=== PATIENT | male | born 1955 | race Caucasian/White ===

== ENCOUNTER 2018-05-26 01:17 | Emergency (ER) | payer MEDICARE, MEDICAID ==
--- NOTE | 2018-05-26 01:31 | EDM.PDOC ---
ED HPI GENERAL MEDICAL PROBLEM - General Chief Complaint: Chest Pain Stated Complaint: CHEST PAINS Time Seen by Provider: 05/26/18 01:17 Source of Information: Reports: Patient History Limitations: Reports: No Limitations - History of Present Illness INITIAL COMMENTS - FREE TEXT/NARRATIVE: 63-year-old male presents with intermittent chest pain for the past 3 weeks. It is not related to any activity although it does seem to be somewhat worse when he is lying down. No shortness of breath. The pain is substernal and lasts between 30 minutes to an hour and a half. At times it's very sharp but nonradiating. He was in to see his regular doctor 2 days ago regarding sciatic pain and did not mention it. Tonight he was having discomfort again so his girlfriend made him come in to be checked. Now that he see her it's going away, he does have a history of anxiety. He also has a history of reflux but is taking omeprazole daily. Onset: Sudden (When pain occurs seems to arise fairly suddenly) Associated Symptoms: Reports: Chest Pain. Denies: Confusion, Cough, Shortness of Breath Chest Pain Pain Score (Numeric/FACES): 6 - Related Data Allergies Allergy/AdvReac Type Severity Reaction Status Date / Time No Known Allergies Allergy Verified 05/26/18 01:28 Home Meds: Home Meds Gabapentin 600 mg PO BID 07/07/15 [History] Aspirin [Halfprin] 81 mg PO DAILY 05/26/18 [History] Citalopram [Citalopram HBr] 20 mg PO DAILY 05/26/18 [History] Cyclobenzaprine [Flexeril] 10 mg PO TID 05/26/18 [History] FLUoxetine HCl [Fluoxetine HCl] 20 mg PO DAILY 05/26/18 [History] Meloxicam 15 mg PO DAILY 05/26/18 [History] Omeprazole 20 mg PO DAILY 05/26/18 [History] QUEtiapine Fumarate [Quetiapine Fumarate] 100 mg PO BEDTIME 05/26/18 [History] Sennosides/Docusate Sodium [Senna-Docusate Sodium Tablet] 1 each PO DAILY [History] methylPREDNISolone [Methylprednisolone] 1 dose PO ASDIRECTED 05/26/18 [History] tiZANidine [Zanaflex] 4 mg PO BID 05/26/18 [History] traMADol HCl [Tramadol HCl] 50 mg PO Q6HR PRN 05/26/18 [History] Past Medical History HEENT History: Reports: Hard of Hearing Other Genitourinary History: hydrocele Musculoskeletal History: Reports: Amputation, Arthritis, Back Pain, Chronic, Fracture, Neck Pain, Chronic Hematologic History: Reports: Blood Transfusion(s) - Past Surgical History GI Surgical History: Reports: Hernia, Inguinal Other Male Surgeries/Procedures: Right orchiectomy Neurological Surgical History: Reports: C-Spine, Lumbar Spine, Spinal Fusion ED ROS GENERAL - Review of Systems Review Of Systems: See Below Constitutional: Denies: Fever, Chills HEENT: Reports: No Symptoms Respiratory: Denies: Shortness of Breath, Cough Cardiovascular: Reports: Chest Pain. Denies: Palpitations GI/Abdominal: Denies: Abdominal Pain, Nausea, Vomiting : Reports: No Symptoms Skin: Reports: No Symptoms Neurological: Denies: Headache ED EXAM, GENERAL - Physical Exam Exam: See Below Exam Limited By: No Limitations General Appearance: Alert, No Apparent Distress Eye Exam: Bilateral Eye: Normal Inspection Respiratory/Chest: No Respiratory Distress, Lungs Clear Cardiovascular: Regular Rate, Rhythm. 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) Neurological: Alert, Oriented Psychiatric: Anxious Skin Exam: Warm, Dry EKG INTERPRETATION Rhythm: NSR Course - Vital Signs Last Recorded V/S: Last Vital Signs Temp 95.5 F 05/26/18 01:19 Pulse 67 05/26/18 02:00 Resp 15 05/26/18 02:00 BP 137/79 05/26/18 02:00 Pulse Ox 94 L 05/26/18 02:00 - Orders/Labs/Meds Orders: Active Orders 24 hr Category Date Time Status EKG Documentation Completion [RC] ASDIRECTED Care 05/26/18 01:26 Active Chest 2V [CR] Routine Exams 05/26/18 01:25 Taken EKG 12 Lead [EK] Routine Ther 05/26/18 01:25 Ordered Labs: Laboratory Tests 05/26/18 05/26/18 Range/Units 01:30 01:30 WBC 6.4 (4.5-11.0) K/uL RBC 4.09 L (4.30-5.90) M/uL Hgb 12.6 (12.0-15.0) g/dL Hct 37.4 L (40.0-54.0) % MCV 91 (80-98) fL MCH 31 (27-31) pg MCHC 34 (32-36) % Plt Count 218 (150-400) K/uL Neut % (Auto) 86 H (36-66) % Lymph % (Auto) 10 L (24-44) % [place] % (Auto) 5 (2-6) % Eos % (Auto) 0 L (2-4) % Baso % (Auto) 0 (0-1) % Sodium 142 (140-148) mmol/L Potassium 4.2 (3.6-5.2) mmol/L Chloride 106 (100-108) mmol/L Carbon Dioxide 26 (21-32) mmol/L Anion Gap 10.1 (5.0-14.0) mmol/L BUN 16 (7-18) mg/dL Creatinine 0.7 L (0.8-1.3) mg/dL Est Cr Clr Drug Dosing 88.36 mL/min Estimated GFR (MDRD) > 60 (>60) Glucose 137 H (74-106) mg/dL Calcium 8.7 (8.5-10.1) mg/dL Troponin I < 0.017 (0.000-0.056) ng/mL - Re-Assessments/Exams Free Text/Narrative Re-Assessment/Exam: 05/26/18 01:32 EKG was completely normal. A two-view chest x-ray, CBC, CMP and troponin were obtained. Patient's pain had resolved before treatment could be given. 05/26/18 02:10 Two-view chest x-ray was normal, CBC CMP and troponin were all reassuring, troponin was 0. No reason for hospitalization, recheck with primary provider in the next 1-2 weeks to discuss stress tests and it would also be helpful to have some liquid antacid available if pain recurs. Departure - Departure Time of Disposition: 02:39 Disposition: Home, Self-Care 01 Condition: Good Clinical Impression: Atypical chest pain Acid reflux Qualifiers: Esophagitis presence: esophagitis presence not specified Qualified Code(s): K21.9 - Gastro-esophageal reflux disease without esophagitis - Discharge Information Instructions: Nonspecific Chest Pain, [id number] Referrals: PCP,None [Primary Care Provider] - Forms: ED Department Discharge Care Plan Goals: Continue your current medications, and have some liquid antacid available to drive pain recurs. If pain persists discuss a stress test with your primary provider or return to the emergency room. - My Orders Last 24 Hours: My Active Orders 05/26/18 01:25 Chest 2V [CR] Routine EKG 12 Lead [EK] Routine 05/26/18 01:26 EKG Documentation Completion [RC] ASDIRECTED - Assessment/Plan Last 24 Hours: My Active Orders 05/26/18 01:25 Chest 2V [CR] Routine EKG 12 Lead [EK] Routine 05/26/18 01:26 EKG Documentation Completion [RC] ASDIRECTED
[2018-05-26 02:02] VITALS: BP 137/79
--- NOTE | 2018-05-28 09:06 | CR ---
CHEST: 2 view CLINICAL HISTORY:Dyspnea COMPARISON:None FINDINGS: The heart size, pulmonary vascular and hilar structures are normal. No infiltrate effusion or pneumothorax is seen. IMPRESSION: No acute cardiopulmonary process.
== END 2018-05-26 02:25 | disposition home or self-care (01) ==
LOC: JP.ED 01:17
DX: K21.9 Gastro-esophageal reflux disease without esophagitis (principal); Z79.899 Other long term (current) drug therapy
CPT/HCPCS: 36415; 71046; 71046-26; 80048; 84484; 85025; 99285-25

== ENCOUNTER 2020-06-07 06:52 | Emergency (ER) | payer MEDICARE, MEDICAID ==
[2020-06-07 07:08] VITALS: BP 145/91; PULSE 65
[2020-06-07] MEDS ORDERED: Diazepam 5 MG Tab PO ONE (07:49)
--- NOTE | 2020-06-07 07:55 | EDM.PDOC ---
ED HPI GENERAL MEDICAL PROBLEM - General Chief Complaint: Upper Extremity Injury/Pain Stated Complaint: RIGHT SHOULDER PAIN Time Seen by Provider: 06/07/20 07:30 Source of Information: Reports: Patient, Family, RN History Limitations: Reports: No Limitations - History of Present Illness INITIAL COMMENTS - FREE TEXT/NARRATIVE: 65-year-old male with a history of over 40 skeletal surgeries including a prosthesis in his left shoulder and his left lower leg comes now because of severe muscle spasm pain in the rhomboids and trapezius area on the right shoulder that kept him awake last night. He has been seen frequently by his private doctor and apparently few days ago got injections in the area that got a little bit numb for a while but has not relieved the muscle spasm. Problem is not in the shoulder tip itself and he has had apparently MRIs. The pain is more just lateral to the spine where he has had prior surgeries as well. Some days he is fine and has no pain other days he has the pain like a charley horse effect in the leg. The Robaxin and [place] have had no effect. He has taken Valium in the past when he had muscle spasm problems with his leg and found it to be effective Right Shoulder Pain Score (Numeric/FACES): 10 - Related Data Allergies Allergy/AdvReac Type Severity Reaction Status Date / Time No Known Allergies Allergy Verified 06/07/20 07:07 Home Meds: Home Meds Gabapentin 600 mg PO BID 07/07/15 [History] Aspirin [Halfprin] 81 mg PO DAILY 05/26/18 [History] FLUoxetine HCl [Fluoxetine HCl] 20 mg PO DAILY 05/26/18 [History] Meloxicam 15 mg PO DAILY 05/26/18 [History] Omeprazole 20 mg PO DAILY 05/26/18 [History] Hydrocodone/Acetaminophen [Hydrocodon-Acetaminophen 5-325] 1 tab PO ASDIRECTED 06/07/20 [History] Mv-Mn/Iron/Folic Acid/Herb 190 [Vitamin D3 Complete Caplet] 1 tab PO DAILY 06/07/20 [History] methocarbamoL [Methocarbamol] 500 mg PO ASDIRECTED 06/07/20 [History] Past Medical History HEENT History: Reports: Hard of Hearing, Impaired Vision Gastrointestinal History: Reports: None Genitourinary History: Reports: Other (See Below) Other Genitourinary History: hydrocele Musculoskeletal History: Reports: Amputation, Arthritis, Back Pain, Chronic, Fracture, Neck Pain, Chronic Other Musculoskeletal History: Disc degenerative disease neck Psychiatric History: Reports: Addiction, Depression Hematologic History: Reports: Blood Transfusion(s) - Infectious Disease History Infectious Disease History: Reports: Chicken Pox - Past Surgical History Head Surgeries/Procedures: Reports: None HEENT Surgical History: Reports: Adenoidectomy, Tonsillectomy, Other (See Below) Other HEENT Surgeries/Procedures: cleft palate GI Surgical History: Reports: Hernia, Inguinal Male Surgical History: Reports: Other (See Below) Other Male Surgeries/Procedures: Right orchiectomy Neurological Surgical History: Reports: C-Spine, Lumbar Spine, Spinal Fusion Musculoskeletal Surgical History: Reports: Amputation, Other (See Below) Other Musculoskeletal Surgeries/Procedures:: left BKA Dermatological Surgical History: Reports: None Social & Family History - Tobacco Use Tobacco Use Status *Q: Current Every Day Tobacco User Years of Tobacco use: 30 Packs/Tins Daily: 0.5 Used Tobacco, but Quit: No Second Hand Smoke Exposure: No - Caffeine Use Caffeine Use: Reports: Coffee - Alcohol Use Days Per Week of Alcohol Use: 5 Number of Drinks Per Day: 2 Total Drinks Per Week: 10 - Recreational Drug Use Recreational Drug Use: No Review of Systems - Review of Systems Review Of Systems: See Below Constitutional: Reports: No Symptoms, Other (10 or more systems reviewed and he appears to be negative and most other than the musculoskeletal as the major problem) ED EXAM, GENERAL - Physical Exam Exam: See Below Free Text/Narrative:: 65-year-old male sitting in the chair accompanied by his . In general he is a relatively thin male who appears moderate distress because of the pain in his shoulder. HEENT shows eyes ears nose and throat appear to be okay Neck has limited range of motion and he has a scar on his upper thoracic cervical spine area from prior surgery Chest clear regular rate and rhythm Extremities he has a prosthesis left lower leg. Range of motion function of the shoulder appears to be okay Musculoskeletal he has tenderness in the rhomboids on the right side of the upper spine and back and into the trapezius which suggest some muscle spasm that he does not have on the left side. Neurologic without focal deficit. Exam Limited By: No Limitations General Appearance: Alert, Anxious, Moderate Distress Course - Vital Signs Text/Narrative:: I discussed with him in detail the options including a stronger type of pain medicine such as Dilaudid or to go to a better muscle relaxer such as 10 mg of Valium supplemented with his 400 of Motrin and 500 of Tylenol. He opts to go for that as I cannot really be both the Valium and Dilaudid. He will then follow-up with his physician Last Recorded V/S: Last Vital Signs Temp 36.3 C 06/07/20 07:13 Pulse 65 06/07/20 07:13 Resp 17 06/07/20 07:13 BP 145/91 H 06/07/20 07:13 Pulse Ox 96 06/07/20 07:13 - Orders/Labs/Meds Meds: Medications Discontinued Medications Generic Name Dose Route Start Last Admin Trade Name Khadar PRN Reason Stop Dose Admin Diazepam 10 mg 06/07/20 07:49 Valium. PO 06/07/20 07:50 ONETIME ONE Departure - Departure Time of Disposition: 08:00 Disposition: Home, Self-Care 01 Condition: Good Clinical Impression: Muscle spasm, Shoulder pain - Discharge Information Instructions: Muscle Cramps and Spasms, [id number] Referrals: Nohemy Ramirez MD [Primary Care Provider] - Forms: ED Department Discharge Additional Instructions: 400 of Motrin and 500 of Tylenol every 4-6 hours for pain. Valium 10 mg 1/2 to 1 tablet every 6-8 hours for muscle spasm. Follow-up with your physician Sepsis Event Note (ED) - Evaluation Sepsis Screening Result: No Definite Risk - Focused Exam Vital Signs: Vital Signs Temp Pulse Resp BP Pulse Ox 06/07/20 07:13 36.3 C 65 17 145/91 H 96 06/07/20 07:07 36.3 C 65 17 145/91 H 96
== END 2020-06-07 08:05 | disposition home or self-care (01) ==
LOC: JP.ED 06:52
DX: M25.511 Pain in right shoulder (principal); M62.838 Other muscle spasm; M19.90 Unspecified osteoarthritis, unspecified site; Z72.0 Tobacco use; Z98.890 Other specified postprocedural states; Z79.82 Long term (current) use of aspirin; Z79.899 Other long term (current) drug therapy
CPT/HCPCS: 99283; A9270

== ENCOUNTER 2020-06-08 17:49 | Emergency (ER) | payer MEDICARE, MEDICAID ==
[2020-06-08] MEDS ORDERED: Baclofen 10 MG Tab PO ONE (18:52)
[2020-06-08] MEDS ORDERED: HYDROmorphone 1 MG/ML Syringe IM ONE (18:52)
--- NOTE | 2020-06-08 18:54 | EDM.PDOC ---
ED HPI GENERAL MEDICAL PROBLEM - General Chief Complaint: Upper Extremity Injury/Pain Stated Complaint: PAIN R SHOULDER Time Seen by Provider: 06/08/20 18:16 Source of Information: Reports: Patient, Family, Old Records, RN Notes Reviewed History Limitations: Reports: No Limitations - History of Present Illness INITIAL COMMENTS - FREE TEXT/NARRATIVE: 65-year-old gentleman presents emergency department with a complaint of right shoulder pain, he states he has had chronic shoulder pain for some time however it has gotten significantly worse over the last week he has visited with his primary care he has visited with orthopedic surgeon who does not want to do surgery on him did try an injection on Monday to see if it would buy him some time. He stated initially it felt good but now it is progressively gotten worse. He is using hydrocodone has used both Flexeril and Valium for muscle relaxant without any relief. Right Middle Shoulder Pain Score (Numeric/FACES): 10 - Related Data Allergies Allergy/AdvReac Type Severity Reaction Status Date / Time No Known Allergies Allergy Verified 06/07/20 07:07 Home Meds: Home Meds Gabapentin 600 mg PO BID 07/07/15 [History] Aspirin [Halfprin] 81 mg PO DAILY 05/26/18 [History] FLUoxetine HCl [Fluoxetine HCl] 20 mg PO DAILY 05/26/18 [History] Meloxicam 15 mg PO DAILY 05/26/18 [History] Omeprazole 20 mg PO DAILY 05/26/18 [History] Hydrocodone/Acetaminophen [Hydrocodon-Acetaminophen 5-325] 1 tab PO ASDIRECTED 06/07/20 [History] Mv-Mn/Iron/Folic Acid/Herb 190 [Vitamin D3 Complete Caplet] 1 tab PO DAILY 06/07/20 [History] methocarbamoL [Methocarbamol] 500 mg PO ASDIRECTED 06/07/20 [History] Acetaminophen [Tylenol] 1,000 mg PO QID 06/08/20 [History] Ibuprofen 400 mg PO QID 06/08/20 [History] diazePAM [Valium] 10 mg PO QID 06/08/20 [History] Past Medical History HEENT History: Reports: Hard of Hearing, Impaired Vision Genitourinary History: Reports: Other (See Below) Other Genitourinary History: hydrocele Musculoskeletal History: Reports: Amputation, Arthritis, Back Pain, Chronic, Fracture, Neck Pain, Chronic Other Musculoskeletal History: Disc degenerative disease neck Psychiatric History: Reports: Addiction, Depression Hematologic History: Reports: Blood Transfusion(s) - Infectious Disease History Infectious Disease History: Reports: Chicken Pox - Past Surgical History Head Surgeries/Procedures: Reports: None HEENT Surgical History: Reports: Adenoidectomy, Tonsillectomy, Other (See Below) Other HEENT Surgeries/Procedures: cleft palate GI Surgical History: Reports: Hernia, Inguinal Male Surgical History: Reports: Other (See Below) Other Male Surgeries/Procedures: Right orchiectomy Neurological Surgical History: Reports: C-Spine, Lumbar Spine, Spinal Fusion Musculoskeletal Surgical History: Reports: Amputation, Other (See Below) Other Musculoskeletal Surgeries/Procedures:: left BKA Dermatological Surgical History: Reports: None Social & Family History - Tobacco Use Tobacco Use Status *Q: Current Every Day Tobacco User Years of Tobacco use: 30 Packs/Tins Daily: 0.5 - Caffeine Use Caffeine Use: Reports: Coffee - Recreational Drug Use Recreational Drug Use: No Review of Systems - Review of Systems Review Of Systems: See Below Constitutional: Reports: No Symptoms Mouth/Throat: Reports: No Symptoms Respiratory: Reports: No Symptoms Cardiovascular: Reports: No Symptoms GI/Abdominal: Reports: No Symptoms Musculoskeletal: Reports: Shoulder Pain Neurological: Reports: No Symptoms ED EXAM, GENERAL - Physical Exam Exam: See Below Free Text/Narrative:: Examination of the right shoulder he has full range of motion of shoulder I cannot appreciate any point tenderness in the shoulder he is tender along the rhomboids and scapular region on the right side radial pulses +2 Exam Limited By: No Limitations General Appearance: Alert, WD/WN, No Apparent Distress Respiratory/Chest: No Respiratory Distress Course - Vital Signs Last Recorded V/S: Last Vital Signs Temp 98.0 F 06/08/20 18:15 Pulse 77 06/08/20 19:18 Resp 17 06/08/20 19:18 BP 151/99 H 06/08/20 19:18 Pulse Ox 95 06/08/20 19:18 - Orders/Labs/Meds Meds: Medications Discontinued Medications Generic Name Dose Route Start Last Admin Trade Name Freq PRN Reason Stop Dose Admin Baclofen 10 mg 06/08/20 18:52 06/08/20 18:56 Lioresal PO 06/08/20 18:53 10 mg ONETIME ONE Administration Hydromorphone HCl 1 mg 06/08/20 18:52 06/08/20 18:56 Dilaudid IM 06/08/20 18:53 1 mg ONETIME ONE Administration Departure - Departure Time of Disposition: 19:41 Disposition: Home, Self-Care 01 Condition: Fair Clinical Impression: Muscle spasm Shoulder pain Qualifiers: Chronicity: chronic Laterality: right Qualified Code(s): M25.511 - Pain in right shoulder; G89.29 - Other chronic pain - Discharge Information Instructions: Shoulder Pain Referrals: Nohemy Ramirez MD [Primary Care Provider] - Forms: ED Department Discharge Additional Instructions: Please contact your primary care in the morning as well as orthopedics for further evaluation and treatment call return to the emergency department worsening of symptoms Sepsis Event Note (ED) - Evaluation Sepsis Screening Result: No Definite Risk - Focused Exam Vital Signs: Vital Signs Temp Pulse Resp BP Pulse Ox 06/08/20 19:18 77 17 151/99 H 95 06/08/20 18:15 98.0 F 83 16 163/104 H 97 06/08/20 18:11 98.0 F 83 16 163/104 H 97 - Assessment/Plan Plan: Assessment Acuity = chronic Site and laterality = right shoulder pain Etiology = unknown Manifestations = none Location of injury = Home Lab values = none Plan Good relief combination hydromorphone and baclofen, prescription written for hydromorphone 2 mg 1 tab p.o. 3 times daily as needed total #10 as well as baclofen 10 mg 1 tab p.o. 3 times daily as needed total #10 he will contact both orthopedics and his primary care tomorrow for further follow-up This note was dictated using [employer] voice recognition software please call with any questions on syntax or grammar.
[2020-06-08 19:19] VITALS: BP 151/99; PULSE 77
== END 2020-06-08 20:03 | disposition home or self-care (01) ==
LOC: JP.ED 17:49
DX: M25.511 Pain in right shoulder (principal); G89.29 Other chronic pain; M62.838 Other muscle spasm; M19.90 Unspecified osteoarthritis, unspecified site; Z72.0 Tobacco use; Z79.82 Long term (current) use of aspirin; Z79.899 Other long term (current) drug therapy
CPT/HCPCS: 96372; 99283; A9270; J1170

== ENCOUNTER 2020-09-26 21:08 | Emergency (ER) | payer MEDICARE, MEDICAID ==
[2020-09-26] MEDS ORDERED: HYDROmorphone 1 MG/ML Syringe IM ONE (21:36)
--- NOTE | 2020-09-26 22:07 | EDM.PDOC ---
ED HPI GENERAL MEDICAL PROBLEM - General Chief Complaint: Wound Recheck Stated Complaint: NECK PAIN Time Seen by Provider: 09/26/20 21:35 Source of Information: Reports: Patient, Family History Limitations: Reports: No Limitations - History of Present Illness INITIAL COMMENTS - FREE TEXT/NARRATIVE: 65-year-old male who had cervical spine surgery 19 days ago, it sounds like he h ad a fusion of C2-C7. He had been doing well, was off his pain medication but 28 hours ago he was pulling on his prosthetic leg when he felt a pop sensation in his right neck. He later reached out and pulled something with his right arm and again felt the same type of sensation. He has had a marked increase in pain in his neck since that time, a few paresthesias or sharp pains in his left arm n ear the antecubital area but no other neurologic deficits or symptoms peripherally. He is just getting concerned that he may have done something to the hardware. He arrives wearing his neck immobilizer, appears stable. He took one of his oxycodones at 7 PM, it is now 9:30. Onset: Sudden Duration: Hour(s): (First episode was 28 hours ago) Location: Reports: Neck (Right side) Associated Symptoms: Reports: Other (Some burning paresthesia sensations in the left arm) Right Neck Pain Score (Numeric/FACES): 8 - Related Data Allergies Allergy/AdvReac Type Severity Reaction Status Date / Time No Known Allergies Allergy Verified 09/26/20 21:18 Home Meds: Home Meds Gabapentin 600 mg PO BID 07/07/15 [History] Aspirin [Halfprin] 81 mg PO DAILY 05/26/18 [History] FLUoxetine HCl [Fluoxetine HCl] 20 mg PO DAILY 05/26/18 [History] Meloxicam 15 mg PO DAILY 05/26/18 [History] Omeprazole 20 mg PO DAILY 05/26/18 [History] methocarbamoL [Methocarbamol] 750 mg PO ASDIRECTED 06/07/20 [History] Acetaminophen [Tylenol] 1,000 mg PO QID 06/08/20 [History] LORazepam [Ativan] 1 mg PO ASDIRECTED 09/26/20 [History] Sennosides [Martha-Francisco] 8.6 mg PO DAILY 09/26/20 [History] oxyCODONE 5 mg PO ASDIRECTED PRN 09/26/20 [History] Past Medical History HEENT History: Reports: Hard of Hearing, Impaired Vision Gastrointestinal History: Reports: None Genitourinary History: Reports: Other (See Below) Other Genitourinary History: hydrocele Musculoskeletal History: Reports: Amputation, Arthritis, Back Pain, Chronic, Fracture, Neck Pain, Chronic Other Musculoskeletal History: Disc degenerative disease neck Psychiatric History: Reports: Addiction, Depression Hematologic History: Reports: Blood Transfusion(s) - Infectious Disease History Infectious Disease History: Reports: Chicken Pox - Past Surgical History Head Surgeries/Procedures: Reports: None HEENT Surgical History: Reports: Adenoidectomy, Tonsillectomy, Other (See Below) Other HEENT Surgeries/Procedures: cleft palate GI Surgical History: Reports: Hernia, Inguinal Male Surgical History: Reports: Other (See Below) Other Male Surgeries/Procedures: Right orchiectomy Neurological Surgical History: Reports: C-Spine, Lumbar Spine, Spinal Fusion Musculoskeletal Surgical History: Reports: Amputation, Other (See Below) Other Musculoskeletal Surgeries/Procedures:: left BKA. neck cervical spine surgery Dermatological Surgical History: Reports: None Social & Family History - Tobacco Use Tobacco Use Status *Q: Former Tobacco User Used Tobacco, but Quit: Yes Month/Year Tobacco Last Used: 07/2020 - Caffeine Use Caffeine Use: Reports: Coffee Caffeine Use Comment: 1/2 a pot per day - Recreational Drug Use Recreational Drug Use: No ED ROS GENERAL - Review of Systems Review Of Systems: See Below Constitutional: Denies: Fever, Chills HEENT: Denies: Throat Pain, Vision Change Respiratory: Denies: Shortness of Breath GI/Abdominal: Denies: Nausea, Vomiting : Reports: No Symptoms Musculoskeletal: Reports: Neck Pain, Back Pain Skin: Reports: Other (No change in the incisions, dry and clean) Neurological: Denies: Headache ED EXAM, UPPER BACK/NECK PAIN - Physical Exam Exam: See Below Text/Narrative:: Patient initially had a cervical spine immobilizer on which was removed. Incisions look excellent. On palpation he has some soreness just to the right of the cervical bodies at roughly C6-C7. He appears to be comfortable with gentle range of motion of the neck. Exam Limited By: No Limitations General Appearance: Alert, No Apparent Distress Eye Exam: Bilateral Eye: Normal Inspection Head Exam: Atraumatic Neck Exam: Painful Range of Motion (Patient can rotate the neck, flexion and extension without significant pain), Paraspinous Muscle Tender (Some palpation tenderness just to the right of the C5-C7 area of the neck) Extremities: Other (Prosthetic leg on the left side) Neurologic: No Motor/Sensory Deficits, Normal Mood/Affect, Oriented x 3 Psychiatric: Normal Affect, Normal Mood Skin Exam: Other (Incisions are dry, slight erythema but no warmth, healing looks appropriate) Course - Vital Signs Last Recorded V/S: Last Vital Signs Temp 97.5 F 09/26/20 21:25 Pulse 70 09/26/20 23:01 Resp 16 09/26/20 23:01 BP 130/86 09/26/20 23:01 Pulse Ox 96 09/26/20 21:25 - Orders/Labs/Meds Meds: Medications Discontinued Medications Generic Name Dose Route Start Last Admin Trade Name Edilbertoq PRN Reason Stop Dose Admin Hydromorphone HCl 1 mg 09/26/20 21:36 09/26/20 21:41 Hydromorphone 1 Mg/Ml Syringe IM 09/26/20 21:37 1 mg ONETIME ONE Administration - Re-Assessments/Exams Free Text/Narrative Re-Assessment/Exam: 09/26/20 22:07 Patient was given 1 mg of IM Dilaudid, and a cervical spine x-ray was obtained. 09/26/20 22:48 C-spine x-ray looks good, read report to still pending. Patient felt much better after the reassurance of the x-ray and the IM Dilaudid. Monday he is going to return to get the images sent down to the spine center and discussed with them how he is feeling. He can return anytime if worsening. 09/27/20 02:00 FINDINGS/IMPRESSION: AP and lateral views of the cervical spine. Status post anterior cervical fusion from C3 to C7, as before, with unchanged bone grafts within the C3-4, C4-5, C5-6, and C6-7 disc spaces and a metallic plate affixed by screws to the C5, C6, and C7 vertebral bodies. Interval revision of previously seen bilateral posterior stabilization rods, now extending from C3 inferiorly to the upper thoracic spine. Surgical hardware appears intact. No fractures are identified. Osseous alignment is within normal limits. Prevertebral soft tissues are unremarkable. Departure - Departure Time of Disposition: 23:00 Disposition: Home, Self-Care Clinical Impression: Acute neck pain - Discharge Information Instructions: Pain Medicine Instructions, [id number] Referrals: Nohemy Ramirez MD [Primary Care Provider] - Forms: ED Department Discharge Care Plan Goals: Take full doses of oxycodone, Tylenol and ibuprofen over the next few days to decrease your pain and return anytime if peripheral nerve deficits occur such as weakness in an arm or leg, or pain is uncontrollable. We will contact you if anything is concerning about the neck x-ray. Sepsis Event Note (ED) - Evaluation Sepsis Screening Result: No Definite Risk - Focused Exam Vital Signs: Vital Signs Temp Pulse Resp BP Pulse Ox 09/26/20 23:01 70 16 130/86 09/26/20 21:25 97.5 F 89 16 140/92 H 96
[2020-09-26 23:01] VITALS: BP 130/86; PULSE 70
--- NOTE | 2020-09-26 23:38 | CRLCR ---
INDICATION: Three weeks postop. Re-injury. Check hardware. COMPARISON: 06/09/2020. FINDINGS/IMPRESSION: AP and lateral views of the cervical spine. Status post anterior cervical fusion from C3 to C7, as before, with unchanged bone grafts within the C3-4, C4-5, C5-6, and C6-7 disc spaces and a metallic plate affixed by screws to the C5, C6, and C7 vertebral bodies. Interval revision of previously seen bilateral posterior stabilization rods, now extending from C3 inferiorly to the upper thoracic spine. Surgical hardware appears intact. No fractures are identified. Osseous alignment is within normal limits. Prevertebral soft tissues are unremarkable. Dictated by Alexx Brito MD @ 09/26/2020 11:37:40 PM Dictated by: Alexx Brito MD @ 09/26/2020 23:37:53 (Electronically Signed)
== END 2020-09-26 23:00 | disposition home or self-care (01) ==
LOC: JP.ED 21:08
DX: M54.2 Cervicalgia (principal); M19.90 Unspecified osteoarthritis, unspecified site; Z79.82 Long term (current) use of aspirin; Z79.899 Other long term (current) drug therapy; Z87.891 Personal history of nicotine dependence
CPT/HCPCS: 72040; 96372; 99283; J1170

== ENCOUNTER 2020-09-30 21:00 | Emergency (ER) | payer MEDICARE, MEDICAID ==
[2020-09-30] MEDS ORDERED: HYDROmorphone 1 MG/ML Syringe IM ONE (21:22)
--- NOTE | 2020-09-30 21:38 | EDM.PDOC ---
ED HPI GENERAL MEDICAL PROBLEM - General Chief Complaint: Wound Recheck Stated Complaint: OPEN WOUND Time Seen by Provider: 09/30/20 21:19 Source of Information: Reports: Patient History Limitations: Reports: No Limitations - History of Present Illness INITIAL COMMENTS - FREE TEXT/NARRATIVE: Jerome is a 65-year-old male presenting to the ED for evaluation of open wound over his thoracic spine. Patient recently underwent a cervical spine fusion from C3-C7 which was performed by Dr. Cox with [facility] at [facility] 3 weeks ago. The patient was seen here on 09/25/2020 for increased neck pain and feeling a pop when he was trying to take off his prosthetic leg. His x-rays of the cervical spine and work-up were unremarkable at the time, however, today he was laying in bed when it all of a sudden felt wet and he sat up. His said that there was red fluid on the bed and when she looked under the dressing she saw the area was wide open. She became concerned and brought him in for evaluation. She has not contacted [facility]. The patient does not have any fever or chills. He has no paresthesias, numbness, or weakness. His fusion was for cervical stenosis. He does have a history of severe degenerative disc disease. Neck Pain Score (Numeric/FACES): 8 - Related Data Allergies Allergy/AdvReac Type Severity Reaction Status Date / Time No Known Allergies Allergy Verified 09/26/20 21:18 Home Meds: Home Meds Gabapentin 600 mg PO BID 07/07/15 [History] Aspirin [Halfprin] 81 mg PO DAILY 05/26/18 [History] FLUoxetine HCl [Fluoxetine HCl] 20 mg PO DAILY 05/26/18 [History] Meloxicam 15 mg PO DAILY 05/26/18 [History] Omeprazole 20 mg PO DAILY 05/26/18 [History] methocarbamoL [Methocarbamol] 750 mg PO ASDIRECTED 06/07/20 [History] Acetaminophen [Tylenol] 1,000 mg PO QID 06/08/20 [History] LORazepam [Ativan] 1 mg PO ASDIRECTED 09/26/20 [History] Sennosides [Martha-Francisco] 8.6 mg PO DAILY 09/26/20 [History] oxyCODONE 5 mg PO ASDIRECTED PRN 09/26/20 [History] Past Medical History HEENT History: Reports: Hard of Hearing, Impaired Vision Gastrointestinal History: Reports: None Genitourinary History: Reports: Other (See Below) Other Genitourinary History: hydrocele Musculoskeletal History: Reports: Amputation, Arthritis, Back Pain, Chronic, Fracture, Neck Pain, Chronic Other Musculoskeletal History: Disc degenerative disease neck Psychiatric History: Reports: Addiction, Depression Hematologic History: Reports: Blood Transfusion(s) - Infectious Disease History Infectious Disease History: Reports: Chicken Pox - Past Surgical History Head Surgeries/Procedures: Reports: None HEENT Surgical History: Reports: Adenoidectomy, Tonsillectomy, Other (See Below) Other HEENT Surgeries/Procedures: cleft palate GI Surgical History: Reports: Hernia, Inguinal Male Surgical History: Reports: Other (See Below) Other Male Surgeries/Procedures: Right orchiectomy Neurological Surgical History: Reports: C-Spine, Lumbar Spine, Spinal Fusion Musculoskeletal Surgical History: Reports: Amputation, Other (See Below) Other Musculoskeletal Surgeries/Procedures:: left BKA. neck cervical spine surgery Dermatological Surgical History: Reports: None Social & Family History - Caffeine Use Caffeine Use: Reports: Coffee Caffeine Use Comment: 1/2 a pot per day ED ROS GENERAL - Review of Systems Review Of Systems: See Below Constitutional: Reports: No Symptoms HEENT: Reports: No Symptoms Respiratory: Reports: No Symptoms Cardiovascular: Reports: No Symptoms Endocrine: Reports: No Symptoms GI/Abdominal: Reports: No Symptoms : Reports: No Symptoms Musculoskeletal: Reports: Neck Pain Skin: Reports: Wound (Wound dehiscence of the thoracic spine from recent cervical spine fusion.) Neurological: Reports: No Symptoms Psychiatric: Reports: No Symptoms Hematologic/Lymphatic: Reports: No Symptoms Immunologic: Reports: No Symptoms ED EXAM, GENERAL - Physical Exam Exam: See Below Exam Limited By: No Limitations General Appearance: Alert, Anxious, Mild Distress Neck: Supple, Non-Tender, Full Range of Motion, Other (Patient arrived in a cervical immobilizer which was removed for examination. He has full range of motion which is predominantly nontender. He does have a very bloody dressing over the upper thoracic spine.) Respiratory/Chest: No Respiratory Distress Cardiovascular: Normal Peripheral Pulses, Regular Rate, Rhythm Back Exam: Other (Dehiscence of the wound in the midline posterior from roughly T3-T6 during 6 cm x 3 cm with clot. I am able to view the posterior pedicles of the spine. It appears the muscles have been pulled away from the spine.) Extremities: Other (Left prosthetic leg (below-knee)) Neurological: Alert, Oriented, Normal Cognition, No Motor/Sensory Deficits Skin Exam: Wound/Incision (Wound dehiscence in the upper thorax posteriorly measuring 6 cm x 3 cm.) Course - Vital Signs Last Recorded V/S: Last Vital Signs Temp 36.7 C 09/30/20 22:40 Pulse 101 H 09/30/20 23:27 Resp 16 09/30/20 23:27 BP 123/96 H 09/30/20 23:27 Pulse Ox 93 L 09/30/20 23:27 - Orders/Labs/Meds Orders: Active Orders 24 hr Category Date Time Status Sodium Chloride 0.9% [Saline Flush] Med 09/30/20 22:08 Active 10 ml FLUSH ASDIRECTED PRN ceFAZolin [Ancef] 1 gm Med 09/30/20 23:28 Active Sodium Chloride 0.9% [Normal Saline] 50 ml IV ONETIME Saline Lock Insert [OM.PC] Routine Oth 09/30/20 22:08 Ordered Medication Orders Cefazolin Sodium 1 gm/ Sodium (Chloride) 50 mls @ 100 mls/hr IV ONETIME ONE Stop: 09/30/20 23:57 Sodium Chloride (Sodium Chloride 0.9% 10 Ml Syringe) 10 ml FLUSH ASDIRECTED PRN PRN Reason: Keep Vein Open Last Admin: 09/30/20 22:51 Dose: 10 ml Documented by: MIKE Meds: Medications Generic Name Dose Route Start Last Admin Trade Name Freq PRN Reason Stop Dose Admin Cefazolin Sodium 1 gm/ Sodium 50 mls @ 100 mls/hr 09/30/20 23:28 Chloride IV 09/30/20 23:57 ONETIME ONE Sodium Chloride 10 ml 09/30/20 22:08 09/30/20 22:51 Sodium Chloride 0.9% 10 Ml Syringe FLUSH 10 ml ASDIRECTED PRN Administration Keep Vein Open Discontinued Medications Generic Name Dose Route Start Last Admin Trade Name Freq PRN Reason Stop Dose Admin Cefazolin Sodium Confirm 09/30/20 23:25 Cefazolin 1 Gm Vial Administered 09/30/20 23:26 Dose 1 gm .ROUTE .STK-MED ONE Hydromorphone HCl 1 mg 09/30/20 21:22 09/30/20 21:29 Hydromorphone 1 Mg/Ml Syringe IM 09/30/20 21:23 1 mg ONETIME ONE Administration Piperacillin Sod/Tazobactam 100 mls @ 100 mls/hr 09/30/20 22:08 09/30/20 22:39 Sod 4.5 gm/ Sodium Chloride IV 09/30/20 23:07 100 mls/hr ONETIME ONE Administration Cefazolin Sodium/Dextrose 1 gm 50 mls @ 100 mls/hr 09/30/20 23:14 / Premix IV 09/30/20 23:43 ONETIME ONE Sodium Chloride Confirm 09/30/20 23:25 Normal Saline Administered 09/30/20 23:26 Dose 50 mls @ as directed .ROUTE .STK-MED ONE - Re-Assessments/Exams Free Text/Narrative Re-Assessment/Exam: 09/30/20 22:05 I discussed the case with Dr. Izquierdo, fellow in neurosurgery at [facility] who recommended that we put moist Curlex packing in the wound and over that place abdominal pad dressings. He recommended starting IV antibiotics which we had with Zosyn. He would like to talk with Dr. Bello and Dr. Cox regarding the time sensitive closure of this wound which is open to his spine. 1 call notified us that there were no beds available at [facility] at this time. Dr. Izquierdo suggested perhaps trying [place] which would be much closer to do the closure which would likely require either general surgeon doing a washout and closure or plastic surgery but felt that neurosurgery really did need to be involved as it was just a wound closure. 09/30/20 22:33 after waiting for nearly 1/2 an hour, a family heard back from [facility] concerning the transfer of the patient. They are trying to get a hold of their neurosurgeon, Dr. Garcia, but he is not answering his phone and may be in the operating room. They will call back once he is available to discuss whether he is comfortable with taking this transfer. 09/30/20 23:10 after waiting over a half an hour we elected to call [facility] and I discussed the case with Dr. Owusu from neurosurgery who felt strongly that the patient should go back to the primary surgeon that operated on him and would not accept him in transfer to [facility]. He was concerned that the patient may have a meningocele or leakage of CSF. 09/30/20 23:20 I received a phone call back from Rent[facility] Patience, Dr. Garcia who like Dr. Owusu also felt that the patient should go back to his primary surgeon and also refused to take the patient. 09/30/20 23:25 I discussed the case again with Dr. Izquierdo who accepts the patient in transfer. [address] Pradhan call me to arrange for direct admission to [facility] which now has a bed available for the patient. Will arrange for EMS to transfer the patient once I talk with Dr. Pradhan. This was discussed with the patient. Dr. Izquierdo would like me to add Ancef 1 g IV to the Zosyn for extended coverage of this open wound. Departure - Departure Time of Disposition: 23:37 Disposition: DC/Tfer to [facility] 02 Clinical Impression: Surgical wound dehiscence Qualifiers: Encounter type: initial encounter Qualified Code(s): T81.31XA - Disruption of external operation (surgical) wound, not elsewhere classified, initial encounter - Discharge Information Referrals: Nohemy Ramirez MD [Primary Care Provider] - Forms: ED Department Discharge Sepsis Event Note (ED) - Evaluation Sepsis Screening Result: No Definite Risk - Focused Exam Vital Signs: Vital Signs Temp Pulse Resp BP Pulse Ox 09/30/20 23:27 101 H 16 123/96 H 93 L 09/30/20 22:40 36.7 C 105 H 16 123/93 H 93 L 09/30/20 21:20 36.6 C 101 H 16 116/85 95 09/30/20 21:13 36.6 C 101 H 16 116/85 95 - Problem List & Annotations (1) Surgical wound dehiscence SNOMED Code(s): 54034914 Code(s): T81.31XA - DISRUPTION OF EXTERNAL OPERATION (SURGICAL) WOUND, NEC, INIT Status: Acute Priority: High Current Visit: Yes Qualifiers: Encounter type: initial encounter Qualified Code(s): T81.31XA - Disruption of external operation (surgical) wound, not elsewhere classified, initial encounter - Problem List Review Problem List Initiated/Reviewed/Updated: Yes - My Orders Last 24 Hours: My Active Orders 09/30/20 22:08 Sodium Chloride 0.9% [Saline Flush] 10 ml FLUSH ASDIRECTED PRN Saline Lock Insert [OM.PC] Routine 09/30/20 23:28 ceFAZolin [Ancef] 1 gm Sodium Chloride 0.9% [Normal Saline] 50 ml IV ONETIME - Assessment/Plan Last 24 Hours: My Active Orders 09/30/20 22:08 Sodium Chloride 0.9% [Saline Flush] 10 ml FLUSH ASDIRECTED PRN Saline Lock Insert [OM.PC] Routine 09/30/20 23:28 ceFAZolin [Ancef] 1 gm Sodium Chloride 0.9% [Normal Saline] 50 ml IV ONETIME
[2020-09-30] MEDS ORDERED: Piperacillin/Tazobactam 4.5 GM in Sodium Chloride 0.9% 100 ML IV ONE (22:08)
[2020-09-30] MEDS ORDERED: Sodium Chloride 0.9% 10 ML Syringe FLUSH PRN (22:08)
[2020-09-30] MEDS ORDERED: ceFAZolin 1 GM in Premix Bag 1 BAG IV ONE (23:14)
[2020-09-30] MEDS ORDERED: Sodium Chloride 0.9% 50 ML ONE (23:25)
[2020-09-30] MEDS ORDERED: ceFAZolin 1 GM Vial ONE (23:25)
[2020-09-30 23:28] VITALS: BP 123/96; PULSE 101
[2020-09-30] MEDS ORDERED: ceFAZolin 1 GM in Sodium Chloride 0.9% 50 ML IV ONE (23:28)
[2020-10-01] MEDS ORDERED: HYDROmorphone 1 MG/ML Syringe IVPUSH ONE (00:10)
== END 2020-10-01 00:24 ==
LOC: JP.ED 21:00
DX: T81.31XA Disruption of external operation (surgical) wound, not elsewhere classified, initial encounter (principal); Z79.82 Long term (current) use of aspirin; Z79.899 Other long term (current) drug therapy
CPT/HCPCS: 36415; 80048; 85025; 86140; 96365; 96367; 96372; 96375; 99284-25; J0690; J1170; J2543

== ENCOUNTER 2023-01-11 16:49 | Emergency (ER) | payer MEDICARE, BC, MEDICAID ==
[2023-01-11 17:10] LABS: BASOPHILS ABSOLUTE AUTO 0.02 K/uL (0.00-0.10); BASOPHILS PERCENT AUTO 0.2 % (0.1-1.3); EOSINOPHILS ABSOLUTE AUTO 0.05 K/uL (0.00-0.40); EOSINOPHILS PERCENT AUTO 0.4 % (0.0-5.4); HEMATOCRIT 38.7 % (38.4-49.7); HEMOGLOBIN 13.6 g/dL (12.9-16.9); IMMATURE GRAN ABSOLUTE AUTO 0.11 K/uL (0.00-0.23); LYMPHOCYTES ABSOLUTE AUTO 0.88 K/uL (0.8-3.3); LYMPHOCYTES PERCENT AUTO 7.9 % (11.4-47.7); MEAN CORPUSCULAR HEMOGLOBIN 31.2 pg (31.6-35.5); MEAN CORPUSCULAR HGB CONC 35.1 g/dL (31.6-35.5); MEAN CORPUSCULAR VOLUME 88.8 fL (81.4-99.0); MONOCYTES ABSOLUTE AUTO 0.59 K/uL (0.20-0.90); MONOCYTES PERCENT AUTO 5.3 % (3.3-12.6); NEUTROPHILS ABSOLUTE AUTO 9.48 K/uL (1.0-7.6); NEUTROPHILS PERCENT AUTO 85.2 % (40.0-78.1); PLATELET COUNT,PLT 214 K/uL (130-375); RED BLOOD CELL COUNT 4.36 M/uL (4.14-5.76); WHITE BLOOD CELL COUNT,WBC 11.1 K/uL (3.2-11.0)
[2023-01-11 17:12] VITALS: BP 171/110; PULSE 77
[2023-01-11] MEDS ORDERED: Iopamidol 612 MG/ML 100 ML Bottle IV ONE (17:16)
[2023-01-11] MEDS ORDERED: Sodium Chloride 0.9% 50 ML IV ONE (17:16)
[2023-01-11] MEDS ORDERED: Sodium Chloride 0.9% 10 ML Syringe FLUSH ONE (17:16)
[2023-01-11 17:18] LABS: ANION GAP 13.9 mmol/L (5.0-14.0); CALCIUM 8.8 mg/dL (8.5-10.1); CREATININE 0.7 mg/dL (0.8-1.3); EST CRCL DRUG DOSING (CG) 84.24 mL/min; POTASSIUM,K 3.9 mmol/L (3.6-5.2)
[2023-01-11] MEDS ORDERED: HYDROmorphone 1 MG/ML Syringe IVPUSH ONE ×2 (19:24→21:39)
[2023-01-11] MEDS ORDERED: HYDROmorphone 0.5 MG/0.5 ML Syringe IVPUSH ONE (23:07)
== END 2023-01-11 23:34 ==
LOC: JP.ED 16:49
DX: S02.2XXA Fracture of nasal bones, initial encounter for closed fracture (principal); S02.40CA Maxillary fracture, right side, initial encounter for closed fracture; S22.068A Other fracture of T7-T8 thoracic vertebra, initial encounter for closed fracture; S32.018A Other fracture of first lumbar vertebra, initial encounter for closed fracture; S12.100A Unspecified displaced fracture of second cervical vertebra, initial encounter for closed fracture; W12.XXXA Fall on and from scaffolding, initial encounter
CPT/HCPCS: 36415; 70450; 70486; 71260; 72125; 72128; 72131; 74177; 76377; 80048; 85025; 96374; 96376; 99285; J3490; Q9967